=== PATIENT | male | born 1980 ===

== ENCOUNTER 2023-09-14 09:04 | Emergency (ER) | payer MEDICAID, SELFPAY ==
--- NOTE | ~2023-09-14 | CT_ITS ---
EXAMINATION: CT ABDOMEN AND PELVIS WITHOUT CONTRAST CLINICAL INFORMATION: Right-sided pain COMPARISON: None available. TECHNIQUE: Multidetector volumetric imaging was performed from the superior aspect of the liver through the pubic symphysis. Sagittal and coronal reformatted images were obtained on the technologist's workstation. This CT examination was performed using dose optimization techniques as appropriate, variously including the following: *Automated exposure control *Adjustment of mA and/or kV according to patient size (this includes techniques or standardized protocols for targeted exams where dose is matched to indication/reason for exam; i.e. extremities or head) *Use of iterative reconstruction technique DLP: 267 mGy-cm FINDINGS: Visualized lung bases demonstrate mild dependent atelectasis. The liver is normal in size. The gallbladder is normal in appearance. The pancreas, spleen and adrenal glands are unremarkable. Symmetrically sized kidneys. There is a 2 mm nonobstructing calculus noted within the upper pole of the right kidney. No left-sided renal calculi. No hydronephrosis of either kidney. Normal caliber loops of small and large bowel. Normal appendix. Normal caliber abdominal aorta. No retroperitoneal lymphadenopathy. The bladder is normally distended. There is mild diffuse bladder wall thickening. There is a 2 mm calculus dependently within the bladder. The prostate gland is normal in size. There is no gross free pelvic fluid. No inguinal lymphadenopathy. No acute osseous abnormality. CT/CT abdomen pelvis wo IV con IMPRESSION: 1. 2 mm nonobstructing right renal calculus. No left-sided renal calculi. No hydronephrosis of either kidney. 2. 2 mm calculus dependently within the bladder. This may represent a recently passed stone. 3. Mild diffuse bladder wall thickening, nonspecific. Fleischner guidelines were followed.
[2023-09-14 09:12] VITALS: BP 137/80; PULSE 55; RESP 20; TEMP 37.1; O2SAT 98; BMI 19.9
--- NOTE | 2023-09-14 09:17 | PC.NURSE ---
PT throwing himself all around in chair in triage, throwing himself on the floor as well while groaning, significant other answering nursing questions in triage
[2023-09-14 09:22] VITALS: BP 121/73; PULSE 48; RESP 18; TEMP 35.7; O2SAT 97
[2023-09-14 09:32] VITALS: TEMP 35.5
--- NOTE | 2023-09-14 09:34 | ED.ABDPAIN ---
HPI - Abdominal Pain General Chief Complaint: Abdominal Pain Stated Complaint: Abd pain Time Seen by Provider: 09/14/23 09:18 Source: patient and nurse practitioner manager Mode of arrival: ambulatory Limitations: no limitations History of Present Illness HPI narrative: 43 yo male no PMH no prior surgeries started with severe R sided abdominal pain abruptly with n/v and cannot get comfortable. Notes he urinated but just a little bit. He has not had diarrhea. This has never happened before. He has chills. He went to bed fine and the pain started suddenly MD elicited complaint: abdominal pain and flank pain Pertinent past history: none Onset (ago): hour(s) (7am today) Pain Consistency: constant Location: RLQ and R flank Severity: severe Quality: stabbing Radiation: none Migration to: no migration Exacerbating factors: nothing Relieving factors: nothing Associated symptoms: nausea, vomiting and chills Related Data Previous Rx's Medication Instructions Recorded cefuroxime axetil 250 mg tablet 250 mg PO BID 6 days #12 tabs 09/14/23 ibuprofen 600 mg tablet 600 mg PO Q6H PRN pain #30 tabs 09/14/23 ondansetron 4 mg disintegrating 4 mg PO Q8H PRN nausea and 09/14/23 tablet vomiting #20 tabs tamsulosin 0.4 mg capsule 0.4 mg PO DAILY 5 days #5 caps 09/14/23 Allergies Allergy/AdvReac Type Severity Reaction Status Date / Time No Known Allergies Allergy Verified 09/14/23 09:15 Review of Systems Review of Systems Constitutional : No Weight loss, No Fever, pos Chills ENT/Mouth : No sore throat, No Rhinorrhea Eyes: No Swelling, No Redness Cardiovascular : No Chest Pain, No SOB, NoEdema Respiratory : No Cough, No Sputum, No Wheezing Gastrointestinal : Positive Nausea, Positive Vomiting, no Diarrhea, positive abdominal Pain, No Hematochezia, No Melena Genitourinary : No Dysuria, No Urinary Frequency, No Hematuria, No Urgency Musculoskeletal : No joint pain, No Myalgias, No Joint Swelling Skin : No Skin Lesions, No rash Neuro : No Weakness, No Numbness, No Dizziness, No Headache Psych : No Anxiety/Panic, No Depression All other systems reviewed and are negative. [facility] Past Medical History Attestation statement: The following information was validated with the patient. Source: old records reviewed Medical History (Updated 09/14/23 @ 12:31 by Vita Weinstein DO) No pertinent past medical history Social History Social History (Updated 09/14/23 @ 09:42 by Vita Weinstein DO) Patient Tobacco Use Status: Current everyday Tobacco user Smoked in Last 30 Days: Yes Use of substances other than those prescribed or required for medical reasons: No Advance Directives: No Advance Directives Information Provided: Yes Physical Exam ED Vital Signs: Vital Signs - 24 hr 09/14/23 09:12 09/14/23 09:22 09/14/23 09:32 Temperature 98.8 F 96.2 F L 95.9 F L Pulse Rate 55 48 L Respiratory Rate 20 18 Blood Pressure 137/80 121/73 Pulse Oximetry 98 97 Oxygen Delivery Method Room Air Room Air 09/14/23 10:03 09/14/23 11:24 09/14/23 12:01 Temperature 97.7 F 98.0 F Pulse Rate 42 L 68 62 Respiratory Rate 13 16 13 Blood Pressure 104/53 L 102/55 L 104/46 L Pulse Oximetry 98 99 98 Oxygen Delivery Method Room Air Room Air Room Air BMI result Body Mass Index 19.9 Appearance: Alert. Oriented X3. yelling writhing around in pain on stretcher moderate acute distress. Eyes: Pupils equal, round and reactive to light. ENT: Pharynx dry MM Neck: Normal inspection. Neck supple. CVS: Normal heart rate and rhythm. Pulses normal. Respiratory: No respiratory distress. Breath sounds normal. Abdomen: Soft and some mild R sided abdominal pain but no rebound noted Skin: Skin warm and dry. pale skin color. Normal skin turgor. Extremities: No lower extremity edema. No calf ttp Neuro: Oriented X 3. No motor deficit. No sensory deficit. Course Course Course Narrative: pain improved already passed stone pending UA and repeat lactic acid Reevaluation(s) Reevaluation #1: repeat lactic acid improved Reevaluation #2: UA negative, pain improved stable for DC Reevaluation #3: given wbc count, lactic acid and bladder wall on CT scan will cover with additional abx Medical Decision Making Medical Decision Making MDM Narrative: 43 yo male with no PMH and no prior surgeries with severe abrupt onset R sided abdominal pain and minimal urine output with n/v. He has never had renal colic before. He has overall no sig ttp on exam. At this time will need labs, UA, has elevated WBC count and lower core temp - cultures, lactic acid, IV ceftriaxone ordered. CT scan ordered for renal colic, appendicitis, colitis. IV morphine for pain. Differential Diagnosis Differential Diagnoses: The differential diagnosis associated with the presentation includes renal colic, appendicitis, colitis, diverticulitis Admission/Observation Consideration of admission/observation: Escalation of care including admission/observation considered symptoms improved stable for DC at this time, tolerating PO Lab Data MDM Lab Attestation statement: I reviewed the patient's lab results. 09/14/23 09:31 09/14/23 09:31 Labs: Lab Results 09/14/23 09/14/23 09/14/23 Range/Units 09:31 09:47 12:01 WBC 22.0 H (4.8-10.8) X10*3/uL RBC 4.43 L (4.60-5.80) X10*6/uL Hgb 12.6 L (14.0-18.0) g/dl Hct 38.3 L (42.0-52.0) % MCV 86.5 (80.0-98.0) fL MCH 28.4 (27.0-33.0) pg MCHC 32.9 (31.0-36.0) g/dl RDW 13.3 (11.0-16.0) % Plt Count 274 (160-400) X10*3/uL MPV 11.4 (9.4-12.4) fL Immature Gran % (Auto) 0.3 (0.0-0.4) % Neut % (Auto) 79.4 H (45-73) % Lymph % (Auto) 13.2 L (20-40) % [place] % (Auto) 6.0 (2-11) % Eos % (Auto) 0.6 (0-4) % Baso % (Auto) 0.5 (0-2) % Lymph # (Auto) 2.9 (1.2-4.9) X10*3/uL [place] # (Auto) 1.3 H (0.1-1.2) X10*3/uL Eos # (Auto) 0.1 (0.0-0.4) X10*3/uL Baso # (Auto) 0.1 (0.0-0.2) X10*3/uL Abs Immat Gran (auto) 0.07 H (0.00-0.03) X10*3/uL Absolute Neuts (auto) 17.5 H (2.0-8.3) x10*3/uL Absolute Nucleated RBC 0.000 (0.0-0.012) X10*3/uL Nucleated RBC % (auto) 0.0 (0.0-0.2) /100WBC Sodium 143 (135-145) mmol/L Potassium 3.7 (3.3-5.1) mmol/L Chloride 109 H (96-108) mmol/L Carbon Dioxide 23 (22-29) mmol/L Anion Gap 15 (12-20) BUN 19 H (9-16) mg/dL Creatinine 1.13 (0.5-1.4) mg/dL Estim Creat Clear Calc 67.2 Estimated GFR > 60 Random Glucose 194 H (60-115) mg/dL Lactic Acid 3.7 H* (0.5-2.0) mmol/L Lactic Acid F/U @ 2Hr 1.7 (0.5-2.0) mmol/L Calcium 9.0 (8.4-10.2) mg/dL Magnesium 1.9 (1.6-2.6) mg/dL Total Bilirubin 0.3 (0.0-1.0) mg/dL Direct Bilirubin 0.1 (0.0-0.5) mg/dL AST 16 (5-37) U/L ALT 17 (0-40) U/L Alkaline Phosphatase 59 (39-117) U/L Troponin I High Sens Cancelled Total Protein 6.9 (6.5-8.0) g/dL Albumin 4.2 (3.5-5.0) g/dL Lipase 19 (8-78) U/L Urine Color Urine Appearance Urine pH (5.0-9.0) Ur Specific [place] (1.005-1.025) Urine Protein (Neg-Trace) mg/dL Urine Glucose (UA) (Negative) mg/dL Urine Ketones (Negative) mg/dL Urine Blood (Negative) Urine Nitrite (Negative) Ur Leukocyte Esterase (Negative) Urine RBC (0-2) /HPF Urine WBC (0-5) /HPF Ur Squamous Epith Cells (0-2) /HPF Urine Bacteria (None Seen) Hyaline Casts (0-2) /LPF 09/14/23 Range/Units 12:49 WBC (4.8-10.8) X10*3/uL RBC (4.60-5.80) X10*6/uL Hgb (14.0-18.0) g/dl Hct (42.0-52.0) % MCV (80.0-98.0) fL MCH (27.0-33.0) pg MCHC (31.0-36.0) g/dl RDW (11.0-16.0) % Plt Count (160-400) X10*3/uL MPV (9.4-12.4) fL Immature Gran % (Auto) (0.0-0.4) % Neut % (Auto) (45-73) % Lymph % (Auto) (20-40) % [place] % (Auto) (2-11) % Eos % (Auto) (0-4) % Baso % (Auto) (0-2) % Lymph # (Auto) (1.2-4.9) X10*3/uL [place] # (Auto) (0.1-1.2) X10*3/uL Eos # (Auto) (0.0-0.4) X10*3/uL Baso # (Auto) (0.0-0.2) X10*3/uL Abs Immat Gran (auto) (0.00-0.03) X10*3/uL Absolute Neuts (auto) (2.0-8.3) x10*3/uL Absolute Nucleated RBC (0.0-0.012) X10*3/uL Nucleated RBC % (auto) (0.0-0.2) /100WBC Sodium (135-145) mmol/L Potassium (3.3-5.1) mmol/L Chloride (96-108) mmol/L Carbon Dioxide (22-29) mmol/L Anion Gap (12-20) BUN (9-16) mg/dL Creatinine (0.5-1.4) mg/dL Estim Creat Clear Calc Estimated GFR Random Glucose (60-115) mg/dL Lactic Acid (0.5-2.0) mmol/L Lactic Acid F/U @ 2Hr (0.5-2.0) mmol/L Calcium (8.4-10.2) mg/dL Magnesium (1.6-2.6) mg/dL Total Bilirubin (0.0-1.0) mg/dL Direct Bilirubin (0.0-0.5) mg/dL AST (5-37) U/L ALT (0-40) U/L Alkaline Phosphatase (39-117) U/L Troponin I High Sens Total Protein (6.5-8.0) g/dL Albumin (3.5-5.0) g/dL Lipase (8-78) U/L Urine Color Yellow Urine Appearance Clear Urine pH 5.5 (5.0-9.0) Ur Specific [place] 1.015 (1.005-1.025) Urine Protein Negative (Neg-Trace) mg/dL Urine Glucose (UA) Negative (Negative) mg/dL Urine Ketones Negative (Negative) mg/dL Urine Blood Moderate (2+) H (Negative) Urine Nitrite Negative (Negative) Ur Leukocyte Esterase Negative (Negative) Urine RBC 0-2 (0-2) /HPF Urine WBC 0-5 (0-5) /HPF Ur Squamous Epith Cells 0-2 (0-2) /HPF Urine Bacteria None Seen (None Seen) Hyaline Casts 0-2 (0-2) /LPF Independent Interpretation I performed an independent interpretation of an: CT Scan (passed stone) Radiology Impression Discussion of test interpretation with radiology: I have reviewed the radiologist's reading. Independent Historian Clinical information obtained from an independent historian. History obtained from or confirmed by: Friend Prescription Management I considered prescription management with: Pain Medication, Antibiotic and Other Medications Administered Discontinued Medications Generic Name Dose Route Start Last Admin Trade Name Freq PRN Reason Stop Dose Admin Sodium Chloride 1,000 mls @ 999 mls/hr 09/14/23 09:45 09/14/23 10:49 Ns IV 09/14/23 10:45 Infused .Q1H1M MEKHI Infusion Ceftriaxone Sodium 1 gm/ 50 mls @ 100 mls/hr 09/14/23 09:38 09/14/23 10:21 Sodium Chloride IV 09/14/23 10:07 Infused ONCE ONE Infusion Sodium Chloride 1,000 mls @ 999 mls/hr 09/14/23 10:30 09/14/23 11:37 Ns IV 09/14/23 11:30 Infused .Q1H1M MEKHI Infusion Ketorolac Tromethamine 15 mg 09/14/23 09:38 09/14/23 09:48 Ketorolac Tromethamine 15 Mg/Ml Vial IVPUSH 09/14/23 09:39 15 mg ONCE ONE Administration Morphine Sulfate 4 mg 09/14/23 09:38 09/14/23 09:48 Morphine Sulfate 4 Mg/Ml Cartridge IVPUSH 09/14/23 09:39 4 mg ONCE ONE Administration Protocol Ondansetron HCl 4 mg 09/14/23 09:38 09/14/23 09:48 Ondansetron Hcl 4 Mg/2 Ml Vial IVPUSH 09/14/23 09:39 4 mg ONCE ONE Administration Critical Care Time Critical Care Time Critical Care Time: Yes Total Critical Care Time: 40 Attestation: repeat labs, IVF x 2L, IV morphine for pain with improvement I attest to this time spent taking care of the patient Discharge Plan Discharge Clinical Impression: Kidney stone on right side Patient Disposition: Home, Self-Care Instructions: Kidney Stones (ED) Additional Instructions: return for worsening symptoms, fevers, vomiting, inability to eat or drink or any other concerns. take medications as prescribed, stay hydrated drink 40 ounces at least a day. Regrese si los s?ntomas empeoran, fiebre, v?mitos, incapacidad para comer o beber o cualquier otra inquietud. tome los medicamentos seg?n lo recetado, mant?ngase hidratado y dedrick 40 onzas al menos al d?a. Prescriptions: New tamsulosin 0.4 mg capsule 0.4 mg PO DAILY 5 Days Qty: 5 0RF cefuroxime axetil 250 mg tablet 250 mg PO BID 6 Days Qty: 12 0RF ibuprofen 600 mg tablet 600 mg PO Q6H PRN (Reason: pain) Qty: 30 0RF ondansetron 4 mg tablet,disintegrating 4 mg PO Q8H PRN (Reason: nausea and vomiting) Qty: 20 0RF Stand Alone Forms: Work/School Release Print Language: Italian
[2023-09-14 09:35] LABS: MANUAL DIFF FLAG NO
[2023-09-14 09:37] LABS: Basophils Absolute Auto 0.1 X10*3/uL (0.0-0.2); Basophils Percent Auto 0.5 % (0-2); Eosinophils Absolute Auto 0.1 X10*3/uL (0.0-0.4); Eosinophils Percent Auto 0.6 % (0-4); Hematocrit 38.3 % (42.0-52.0); Hemoglobin 12.6 g/dl (14.0-18.0); Imm Gran Abs Auto 0.07 X10*3/uL (0.00-0.03); Imm Gran Pct Auto 0.3 % (0.0-0.4); Lymphocytes Absolute Auto 2.9 X10*3/uL (1.2-4.9); Lymphocytes Percent Auto 13.2 % (20-40); Mean Corpuscular HGB Conc 32.9 g/dl (31.0-36.0); Mean Corpuscular Hemoglobin 28.4 pg (27.0-33.0); Mean Corpuscular Volume 86.5 fL (80.0-98.0); Mean Platelet Volume 11.4 fL (9.4-12.4); Monocytes Absolute Auto 1.3 X10*3/uL (0.1-1.2); Neutrophils Absolute Auto 17.5 x10*3/uL (2.0-8.3); Neutrophils Percent Auto 79.4 % (45-73); Platelet Count 274 X10*3/uL (160-400); Red Blood Count 4.43 X10*6/uL (4.60-5.80); Red Cell Distribution Width 13.3 % (11.0-16.0)
[2023-09-14] MEDS: Morphine Sulfate 4 MG/ML CARTRIDGE IVPUSH (09:48)
[2023-09-14] MEDS: 0.9 % Sodium Chloride 1,000 ML 999 ML IV ×2 (09:48→10:36)
[2023-09-14] MEDS: Ketorolac Tromethamine 15 MG/ML VIAL IVPUSH (09:48)
[2023-09-14] MEDS: ondansetron HCL 4 MG/2 ML VIAL IVPUSH (09:48)
[2023-09-14] MEDS: cefTRIAXone sodium 1 GM in 0.9 % Sodium Chloride 50 ML IV (09:51)
[2023-09-14 09:57] LABS: Alanine Aminotransferase 17 U/L (0-40); Albumin Level 4.2 g/dL (3.5-5.0); Alkaline Phosphatase 59 U/L (39-117); Anion Gap 15 (12-20); Aspartate Amino Transferase 16 U/L (5-37); Bilirubin Direct 0.1 mg/dL (0.0-0.5); Bilirubin Total 0.3 mg/dL (0.0-1.0); Blood Urea Nitrogen 19 mg/dL (9-16); Carbon Dioxide 23 mmol/L (22-29); Chloride 109 mmol/L (96-108); Creatinine Clr Calc Pharmacy 67.2; Estimated Glomerular Filt Rate > 60; Glucose Random 194 mg/dL (60-115); Lipase 19 U/L (8-78); Magnesium 1.9 mg/dL (1.6-2.6); Potassium 3.7 mmol/L (3.3-5.1); Sodium 143 mmol/L (135-145); Total Protein 6.9 g/dL (6.5-8.0)
--- NOTE | 2023-09-14 09:58 | PC.NURSE ---
a&ox4. bradycardic on the laboratory monitor between 40s-50bpm. trunk warm/extremities cold to touch. oral temp displaying 96.2 - rectal temp obtained displaying 95.2. chills present in UE. provider notified/aware. warm blankets applied to pt. pt seemingly uncomfortable - thrashing body into air unable to find a comfortable position. pt c/o RLQ pain/n/v that started around 0700. pt verbalizing inadequate urine output. pt aware urine sample needs to be obtained. 20gIV placed in the left AC - labs obtained/sent to lab. medication administered per provider order. pt waiting to go to CT. plan of care ongoing. call kimbrough place within reach.
[2023-09-14 10:03] VITALS: BP 104/53; PULSE 42; RESP 13; O2SAT 98
[2023-09-14 10:25] LABS: Lactic Acid 3.7 mmol/L (0.5-2.0)
--- NOTE | 2023-09-14 10:37 | PC.NURSE ---
pt verbalizing pain level decreased to a 010 post medication administration. IVF administered per provider order. pt resting comfortably in no apparent distress waiting to go to CT at this time. plan of care ongoing. call kimbrough placed within reach.
[2023-09-14 11:24] VITALS: BP 102/55; PULSE 68; RESP 16; TEMP 36.5; O2SAT 99
--- NOTE | 2023-09-14 11:25 | PC.NURSE ---
pt returned from CT. vss and up to date at this time aside from remaining slightly hypotensive. sinus rj/nsr on the phototypesetting equipment monitor - HR between 50s-60s bpm. pt still verbalizing pain has subsided since medication administration. pt waiting for CT results at this time. no sob/wob noted. respirations remain even and unlabored. plan of care ongoing. call kimbrough placed within reach.
[2023-09-14 11:52] LABS: Reflex Lactate? Lactic Acid Added
[2023-09-14 12:01] VITALS: BP 104/46; PULSE 62; RESP 13; TEMP 36.7; O2SAT 98
[2023-09-14 12:27] LABS: ~Lactic Acid-LAB USE ONLY 1.7 mmol/L (0.5-2.0)
--- NOTE | 2023-09-14 12:50 | PC.NURSE ---
urine obtained/sent to lab.
[2023-09-14 13:02] LABS: Appearance Urine Clear; Color Urine Yellow; Glucose Urine UA Negative (Negative); Leukocyte Esterase Urine Negative (Negative); Nitrite Urine Negative (Negative); PH 5.5 (5.0-9.0); Specific Gravity - Urine 1.015 (1.005-1.025); UMIC TRIGGER UACC YES; Urine Blood Moderate (2+) (Negative); Urine Ketones Negative (Negative); Urine Protein Negative (Neg-Trace)
[2023-09-14 13:13] LABS: Bacteria Urine None Seen (None Seen); Hyaline Casts Urine 0-2 /LPF (0-2); RBC Urine 0-2 /HPF (0-2); Squamous Epithelial Cell Urine 0-2 /HPF (0-2); WBC Urine 0-5 /HPF (0-5)
== END 2023-09-14 13:35 | disposition home or self-care (01) ==
PROVIDERS: Emergency Provider Emergency Medicine
DX: N20.0 Calculus of kidney (principal); R10.11 Right upper quadrant pain; R11.2 Nausea with vomiting, unspecified; Z79.899 Other long term (current) drug therapy
CPT/HCPCS: 36415; 74176; 80053; 81001; 81003; 82248; 83605; 83690; 83735; 85025; 87040; 96361; 96374; 96375; 99285; J0696; J1885; J2270; J2405